=== PATIENT | female | born 1995 | race Caucasian/White ===

== ENCOUNTER 2017-09-20 17:46 | Emergency (ER) | payer OTHER ==
[2017-09-20] MEDS: IBUPROFEN 800 MG TAB PO (19:55)
== END 2017-09-20 20:00 | disposition home or self-care (01) ==
LOC: M ED 17:46
DX: S93.601A Unspecified sprain of right foot, initial encounter (principal); X58.XXXA Exposure to other specified factors, initial encounter; Y92.89 Other specified places as the place of occurrence of the external cause; Z91.018 Allergy to other foods
CPT/HCPCS: 73564